=== PATIENT | male | born 1975 ===

== ENCOUNTER 2018-03-23 07:49 | Emergency (ER) | payer MEDICAID, OTHER ==
[2018-03-23] MEDS: Albuterol-Ipratrop 3 mg / 0.5 (3 ml) UD IH SCH ×3 (07:50→08:06)
[2018-03-23 07:51] VITALS: BMI 23.0
--- NOTE | 2018-03-23 08:32 | ED PDOC ---
Arrival/HPI - General Chief Complaint: Respiratory Distress Time Seen by Provider: 03/23/18 07:50 Historian: Patient - History of Present Illness Narrative History of Present Illness (Text): 03/23/18 07:51 42 year old male, with no significant past medical history, who was brought in to the Emergency department under police custody complaining of asthma symptoms since yesterday. Patient also complaining of chronic back pain and denies any recent trauma. Patient states he has not taken any medication to alleviate symptoms. Patient denies any recent travel, fevers, chills, chest pain, nausea, vomiting, diarrhea, or any other complaint. Time/Duration: 24 hours (patient notes asthma symptoms since yesterday) Symptom Onset: Sudden Symptom Course: Unchanged Activities at Onset: Light Past Medical History - Provider Review Nursing Documentation Reviewed: Yes - Travel History Have you recently traveled outside [place] w/in the past 3 mons?: No - Infectious Disease Hx of Infectious Diseases: None - Cardiac Hx Cardiac Disorders: No - Pulmonary Hx Asthma: Yes - Neurological Hx Neurological Disorder: No - Hematological/Oncological Hx Blood Disorders: No - Gastrointestinal Hx Gastrointestinal Disorders: No - Genitourinary/Gynecological Hx Genitourinary Disorders: No - Psychiatric Hx Substance Use: No - Anesthesia Hx Anesthesia: No Family/Social History - Physician Review Nursing Documentation Reviewed: Yes Family/Social History: No Known Family HX Smoking Status: Unknown If Ever Smoked Hx Alcohol Use: No Hx Substance Use: No Allergies/Home Meds Allergies/Adverse Reactions: Allergies No Known Allergies Allergy (Unverified 03/23/18 07:51) Home Medications: Home Meds Medication Instructions Recorded Confirmed Albuterol Sulfate [Proair 90 mcg IH PRN PRN 03/23/18 03/23/18 Respiclick] Review of Systems - Physician Review All systems were reviewed & negative as marked: Yes - Review of Systems Constitutional: Normal. absent: Fevers Eyes: Normal ENT: Normal Respiratory: Cough (+ dry cough). absent: Normal Cardiovascular: Normal. absent: Chest Pain Gastrointestinal: Normal. absent: Diarrhea, Nausea, Vomiting Genitourinary Male: Normal Musculoskeletal: Back Pain (patient complaining of chronic back pain, no recent trauma). absent: Normal Skin: Normal Neurological: Normal Endocrine: Normal Hemo/Lymphatic: Normal Psychiatric: Normal Physical Exam Vital Signs Reviewed: Yes Vital Signs Temp Pulse Resp BP Pulse Ox 03/23/18 12:34 76 18 121/76 98 03/23/18 10:00 82 18 131/72 98 03/23/18 08:00 20 98 03/23/18 07:50 98 F 72 20 131/84 98 Temperature: Afebrile Blood Pressure: Normal Pulse: Regular Respiratory Rate: Normal Appearance: Positive for: Well-Appearing, Non-Toxic, Comfortable Pain Distress: None Mental Status: Positive for: Alert and Oriented X 3 - Systems Exam Head: Present: Atraumatic, Normocephalic Pupils: Present: PERRL Extroacular Muscles: Present: EOMI Conjunctiva: Present: Normal Mouth: Present: Moist Mucous Membranes Neck: Present: Normal Range of Motion Respiratory/Chest: Present: Clear to Auscultation, Good Air Exchange, Wheezes ( mild respiratory wheeze bilaterally). No: Respiratory Distress, Accessory Muscle Use Cardiovascular: Present: Regular Rate and Rhythm, Normal S1, S2. No: Murmurs Abdomen: No: Tenderness, Distention, Peritoneal Signs Back: Present: Other (abrasion to lower back). No: Normal Inspection Upper Extremity: Present: Normal Inspection. No: Cyanosis, Edema Lower Extremity: Present: Normal Inspection. No: Edema Neurological: Present: GCS=15, CN II-XII Intact, Speech Normal Skin: Present: Warm, Dry, Normal Color. No: Rashes Psychiatric: Present: Alert, Oriented x 3, Normal Insight, Normal Concentration Medical Decision Making ED Course and Treatment: 03/23/18 07:51 Impression: 42 year old male brought in to the emergency department under custody complaining of asthma symptoms since yesterday. Plan: -- Motrin -- Duoneb 3 mg/0.5 mg (3ml) -- predniSONE tab 60 mg PO -- X-ray of LS with obl > 18 yrs old -- Reassess and disposition Progress Notes: X-ray of Lumbar spine reviewed by radiologist, shows: Dictator : Marito Murphy MD Report Date : 03/23/2018 11:37:03 FINDINGS: BONES: Normal alignment. No listhesis. No fracture. DISC SPACES: There is severe disc degeneration at L3-4, L4-5 and L5-S1. OTHER FINDINGS: None. IMPRESSION: No acute fracture - RAD Interpretation Radiology Orders: 03/23/18 09:53 LS SPINE WITH OBL > 18 YRS OLD [RAD] Stat Associate Manager: Radiologist - Medication Orders Current Medication Orders: Discontinued Medications Acetaminophen (Tylenol 325mg Tab) 975 mg PO STAT STA Stop: 03/23/18 12:13 Last Admin: 03/23/18 12:25 Dose: 975 mg [facility] Pain/Vitals Document 03/23/18 12:25 CHARISMA (Rec: 03/23/18 12:25 CHARISMA [id number]) Pain Reassessment Is This A Pain ReAssessment? No Sleep Is patient sleeping during reassessment? No Presence of Pain Presence of Pain Yes Albuterol/Ipratropium (Duoneb 3 Mg/0.5 Mg (3 Ml) Ud) 3 ml IH Q15M BROOKE Stop: 03/23/18 08:31 Last Admin: 03/23/18 08:06 Dose: 3 ml Ibuprofen (Motrin Tab) 600 mg PO STAT STA Stop: 03/23/18 09:24 Last Admin: 03/23/18 09:36 Dose: 600 mg MAR Pain/Vitals Document 03/23/18 09:36 CHARISMA (Rec: 03/23/18 09:36 CHARISMA [id number]) Sleep Is patient sleeping during reassessment? No Presence of Pain Presence of Pain Yes Pain Scale Used Pain Scale Used Numeric Location Intensity 4 Scale Used Numeric Re-Assess: MAR Pain/Vitals Document 03/23/18 10:36 CHARISMA (Rec: 03/23/18 12:47 CHARISMA [id number]) Pain Reassessment Is This A Pain ReAssessment? Yes Sleep Is patient sleeping during reassessment? No Presence of Pain Presence of Pain Yes Pain Scale Used Pain Scale Used Numeric Location Intensity 4 Scale Used Numeric Prednisone (Prednisone Tab) 60 mg PO STAT ONE Stop: 03/23/18 07:52 Last Admin: 03/23/18 08:06 Dose: 60 mg - Scribe Statement The provider has reviewed the documentation as recorded by the Jose Acuña All medical record entries made by the Angieibsalinas were at my direction and personally dictated by me. I have reviewed the chart and agree that the record accurately reflects my personal performance of the history, physical exam, medical decision making, and the department course for this patient. I have also personally directed, reviewed, and agree with the discharge instructions and disposition. Disposition/Present on Arrival - Present on Arrival Any Indicators Present on Arrival: No History of DVT/PE: No History of Uncontrolled Diabetes: No Urinary Catheter: No History of Decub. Ulcer: No History Surgical Site Infection Following: None - Disposition Have Diagnosis and Disposition been Completed?: Yes Diagnosis: Asthma exacerbation, Chronic lower back pain Disposition: HOME/ ROUTINE Disposition Time: 09:00 Condition: IMPROVED Discharge Instructions (ExitCare): Asthma, Adult (DC), Low Back Pain (DC) Additional Instructions: SMITHA JEFFERS, thank you for letting us take care of you today. Your provider was Mal Monk DO and you were treated for ASTHMA. The emergency medical care you received today was directed at your acute symptoms. If you were prescribed any medication, please fill it and take as directed. It may take several days for your symptoms to resolve. Return to the Emergency Department if your symptoms worsen, do not improve, or if you have any other problems. Please contact your doctor or call one of the physicians/clinics you have been referred to that are listed on the Patient Visit Information form that is included in your discharge packet. Bring any paperwork you were given at discharge with you along with any medications you are taking to your follow up visit. Our treatment cannot replace ongoing medical care by a primary care provider outside of the emergency department. Thank you for allowing the [facility] team to be part of your care today. The x-ray of your lower back shows chronic back pain. There is no fracture. Follow up with your primary care doctor in 2-3 days for re-evaluation and further management. PATIENT IS MEDICALLY CLEARED FOR INCARCERATION. Prescriptions: Albuterol Sulfate [Ventolin Hfa] 2 puff IH Q4 PRN #1 unit PRN Reason: wheeze Ibuprofen [Motrin] 600 mg PO Q6 PRN #20 tab PRN Reason: Pain, Moderate (4-7) predniSONE [Prednisone] 40 mg PO DAILY #10 tab Referrals: [facility] Rereza, [Non-Staff] - Follow up with primary Forms: [employer] ([place])
[2018-03-23 09:06] VITALS: O2SAT 98
[2018-03-23 09:09] VITALS: TEMP 98
--- NOTE | 2018-03-23 11:38 | RAD ---
Date of service: 03/23/2018 PROCEDURE: Radiographs of the Lumbar Spine. HISTORY: r/o fx COMPARISON: No prior. FINDINGS: BONES: Normal alignment. No listhesis. No fracture. DISC SPACES: There is severe disc degeneration at L3-4, L4-5 and L5-S1. OTHER FINDINGS: None. IMPRESSION: No acute fracture
[2018-03-23 12:34] VITALS: RESP 18
[2018-03-23 12:37] VITALS: BP 121/76; PULSE 76
== END 2018-03-23 12:55 | disposition home or self-care (01) ==
LOC: ED 07:49
DX: G89.29 Other chronic pain (principal); M54.5 Low back pain; J45.901 Unspecified asthma with (acute) exacerbation